=== PATIENT | female | born 1995 | race Caucasian/White ===

== ENCOUNTER 2018-06-05 04:29 | Emergency (ER) | payer MEDICAID ==
[2018-06-05] MEDS ORDERED: NS 1,000 ML IV ONE (04:43)
--- NOTE | 2018-06-05 04:44 | EDPHY ---
H & P Stated Complaint: R flank pain, lower abdomen pain Time Seen by Provider: 06/05/18 04:35 HPI/ROS: Chief Complaint: Flank pain HPI: 23-year-old woman woke with left flank pain this morning. Pain is a 7/ 10. It radiates down to her left groin and to her left upper abdomen. Some nausea, no vomiting. Last menstrual cycle was 3 weeks ago and was normal. She is sexually active. Does use control. She has never been . No history of sexually transmitted illness. She has 1 sexual partner. No urinary urgency or frequency. No fevers or chills. She cannot find a position of comfort. No history of similar episodes in the past. ROS: 10 systems were reviewed and were negative except those elements noted in the HPI. PMH: Denies Social History: No smoking, occasional alcohol Family History: non-contributory Physical Exam: Gen: Awake, Alert, No Distress HEENT: Nose: no rhinorrhea Eyes: PERRLA, EOMI Mouth: Moist mucosa Neck: Supple, no JVD Chest: nontender, lungs clear to auscultation Heart: S1, S2 normal, no murmur Abd: Soft, moderate left upper quadrant pain, mild left adnexal pain, no guarding Back: Mild left CVA tenderness, no midline tenderness Ext: no edema, non-tender Skin: no rash Neuro: CN II-XII intact, Sensation grossly intact, Strength 5/5 in bilateral upper and lower extremities - Personal History LMP (Females 10-55): 15-21 Days Ago Current Tetanus/Diphtheria Vaccine: Yes Current Tetanus Diphtheria and Acellular Pertussis (TDAP): Yes - Medical/Surgical History Hx Asthma: No Hx Chronic Respiratory Disease: No Hx Diabetes: No Hx Cardiac Disease: No Hx Renal Disease: No Hx Cirrhosis: No Hx Alcoholism: No Hx HIV/AIDS: No Hx Splenectomy or Spleen Trauma: No Other PMH: denies - Social History Smoking Status: Never smoked Constitutional: Initial Vital Signs Temperature (C) 36.6 C 06/05/18 04:32 Heart Rate 72 06/05/18 04:32 Respiratory Rate 16 06/05/18 04:32 Blood Pressure 126/75 H 06/05/18 04:32 O2 Sat (%) 99 06/05/18 04:32 O2 Delivery Mode Room Air Allergies/Adverse Reactions: No Known Allergies Allergy (Unverified 06/05/18 04:30) Home Medications: Medication Instructions Recorded Sprintec 28 Day Tablet 06/05/18 Medical Decision Making - Diagnostics Imaging Results: Ultrasound shows a 4 mm urethral stone with some mild left-sided hydronephrosis. There are calculi in her left renal pelvis. Study interpreted by Dr. Moreno. ED Course/Re-evaluation: Patient has a urethral stone, 4 mm. Mild hydronephrosis. Her pain is resolved. Will discharge with referral to Urology for further evaluation. - Data Points Laboratory Results: Laboratory Results 06/05/18 04:50 06/05/18 04:50 06/05/18 06/05/18 06/05/18 04:55 04:50 04:50 WBC RBC Hgb Hct MCV MCH MCHC RDW Plt Count MPV Neut % (Auto) Lymph % (Auto) Cecil % (Auto) Eos % (Auto) Baso % (Auto) Nucleat RBC Rel Count Absolute Neuts (auto) Absolute Lymphs (auto) Absolute Monos (auto) Absolute Eos (auto) Absolute Basos (auto) Absolute Nucleated RBC Immature Gran % Immature Gran # Sodium 139 mEq/L mEq/L (135-145) Potassium 3.7 mEq/L mEq/L (3.5-5.2) Chloride 108 mEq/L mEq/L (97-110) Carbon Dioxide 22 mEq/l mEq/l (22-31) Anion Gap 9 mEq/L mEq/L (6-14) BUN 12 mg/dL mg/dL (7-23) Creatinine 0.9 mg/dL mg/dL (0.6-1.0) Estimated GFR > 60 Glucose 90 mg/dL mg/dL (70-100) Calcium 8.9 mg/dL mg/dL (8.5-10.4) Beta HCG, Qual NEGATIVE Urine Color YELLOW Urine Appearance MODERATELY TURBID Urine pH 5.0 (5.0-7.5) Ur Specific [place] 1.027 (1.002-1.030) Urine Protein 1+ H (NEGATIVE) Urine Ketones TRACE H (NEGATIVE) Urine Blood 3+ H (NEGATIVE) Urine Nitrate NEGATIVE (NEGATIVE) Urine Bilirubin NEGATIVE (NEGATIVE) Urine Urobilinogen NEGATIVE EU EU (0.2-1.0) Ur Leukocyte Esterase NEGATIVE (NEGATIVE) Urine RBC 50-182 /hpf H /hpf (0-3) Urine WBC 0-1 /hpf /hpf (0-3) Ur Epithelial Cells 1+ /lpf /lpf (NONE-1+) Urine Mucus 2+ /lpf H /lpf (NONE-1+) Urine Glucose NEGATIVE (NEGATIVE) 06/05/18 04:50 WBC 8.23 10^3/uL 10^3/uL (3.80-9.50) RBC 4.49 10^6/uL 10^6/uL (4.18-5.33) Hgb 12.8 g/dL g/dL (12.6-16.3) Hct 39.7 % % (38.0-47.0) MCV 88.4 fL fL (81.5-99.8) MCH 28.5 pg pg (27.9-34.1) MCHC 32.2 g/dL L g/dL (32.4-36.7) RDW 13.4 % % (11.5-15.2) Plt Count 285 10^3/uL 10^3/uL (150-400) MPV 9.6 fL fL (8.7-11.7) Neut % (Auto) 43.8 % % (39.3-74.2) Lymph % (Auto) 47.3 % H % (15.0-45.0) Cecil % (Auto) 7.4 % % (4.5-13.0) Eos % (Auto) 1.0 % % (0.6-7.6) Baso % (Auto) 0.4 % % (0.3-1.7) Nucleat RBC Rel Count 0.0 % % (0.0-0.2) Absolute Neuts (auto) 3.61 10^3/uL 10^3/uL (1.70-6.50) Absolute Lymphs (auto) 3.89 10^3/uL H 10^3/uL (1.00-3.00) Absolute Monos (auto) 0.61 10^3/uL 10^3/uL (0.30-0.80) Absolute Eos (auto) 0.08 10^3/uL 10^3/uL (0.03-0.40) Absolute Basos (auto) 0.03 10^3/uL 10^3/uL (0.02-0.10) Absolute Nucleated RBC 0.00 10^3/uL 10^3/uL (0-0.01) Immature Gran % 0.1 % % (0.0-1.1) Immature Gran # 0.01 10^3/uL 10^3/uL (0.00-0.10) Sodium Potassium Chloride Carbon Dioxide Anion Gap BUN Creatinine Estimated GFR Glucose Calcium Beta HCG, Qual Urine Color Urine Appearance Urine pH Ur Specific [place] Urine Protein Urine Ketones Urine Blood Urine Nitrate Urine Bilirubin Urine Urobilinogen Ur Leukocyte Esterase Urine RBC Urine WBC Ur Epithelial Cells Urine Mucus Urine Glucose Medications Given: Discontinued Medications Sodium Chloride (Ns) 1,000 mls @ 0 mls/hr IV ONCE ONE; Wide Open PRN Reason: Protocol Stop: 06/05/18 04:44 Last Admin: 06/05/18 04:53 Dose: 1,000 mls Ketorolac Tromethamine (Toradol) 15 mg IVP EDNOW ONE Stop: 06/05/18 05:28 Last Admin: 06/05/18 05:28 Dose: 15 mg Ondansetron HCl (Zofran) 4 mg IVP EDNOW ONE Stop: 06/05/18 05:29 Last Admin: 06/05/18 05:30 Dose: 4 mg Departure - Departure Disposition: Home, Routine, Self-Care Clinical Impression: Kidney stone Condition: Good Instructions: Kidney Stones (ED) Additional Instructions: Take ibuprofen, 600 mg every 8 hr. You may alternate with acetaminophen, 1000 mg every 8 hr. Follow up with the urologist in about a week for further evaluation. Return to the emergency department for increasing pain, fevers, chills, nausea, vomiting, or any other concerns. Referrals: DORON AUGUSTE [Primary Care Provider] - As per Instructions Florencio Hou MD [Medical Doctor] - As per Instructions
[2018-06-05 05:15] LABS: PLATELET COUNT 285 10^3/uL (150-400)
[2018-06-05] MEDS ORDERED: KETOROLAC 15 MG/1 ML SDV ONE (05:27)
[2018-06-05] MEDS ORDERED: KETOROLAC 15 MG/1 ML SDV IVP ONE (05:27)
[2018-06-05] MEDS ORDERED: ONDANSETRON 4 MG/2 ML VIAL IVP ONE (05:28)
[2018-06-05 07:00] VITALS: BP 123/74
== END 2018-06-05 06:59 | disposition home or self-care (01) ==
DX: N13.2 Hydronephrosis with renal and ureteral calculous obstruction (principal); E86.9 Volume depletion, unspecified
CPT/HCPCS: 96374; J1885; J2405